=== PATIENT | female | born 1995 | race Caucasian/White ===

== ENCOUNTER 2021-08-13 17:07 | Emergency (ER) | payer OTHER, SELFPAY ==
--- NOTE | ~2021-08-13 | CT_ITS ---
EXAMINATION: CT brain wo con INDICATION: Head injury COMPARISON: None TECHNIQUE: Standard unenhanced head CT. The dose-length product (DLP) was 605.33 mGy-cm. The mA was a djusted according to patient size. Iterative reconstruction technique was employed. FINDINGS: There is no intracranial hemorrhage, acute infarction, or abnormal mass lesion. The ventric les are normal. There is no abnormal mass effect or midline shift. The barber-white matter differentiat ion is normal. The basal cisterns are patent. The orbits are normal. The paranasal sinuses, mastoids and calvarium are normal. IMPRESSION: 1. No acute intracranial abnormality. Reviewed, dictated and finalized at location F. DYNAMICS ENGINEER
--- NOTE | ~2021-08-13 | XR_ITS ---
EXAMINATION: XR chest 1V portable INDICATION: Transient alteration of awareness TECHNIQUE: Portable AP chest at 1840 hours COMPARISON: None available FINDINGS: The lungs are free of acute opacities. There is no pleural effusion or pneumothorax. The ca rdiomediastinal silhouette is normal. IMPRESSION: 1. No acute cardiopulmonary abnormality. Reviewed, dictated and finalized at location F. PER AND RECEIVING
--- NOTE | ~2021-08-13 | CT_ITS ---
EXAMINATION: CT cervical spine wo con DATE: 08/13/2021 18:52 INDICATION: Transient alteration of awareness, neck pain TECHNIQUE: Computed tomography (CT) of the cervical spine was performed without intravenous contrast. The dose-length product (DLP) was 475.83 mGy-cm. Automated exposure control and iterative reconstruc tion technique were employed. COMPARISON: None FINDINGS: There is no fracture, dislocation, or subluxation. The vertebral body heights, alignment, a nd intervertebral disc spaces are normal. The paravertebral soft tissues are unremarkable. The odonto id is intact. IMPRESSION: 1. No acute osseous abnormality. Reviewed, dictated and finalized at location F. ORICAL SITE GUIDE
[2021-08-13 17:15] VITALS: BP 127/79; PULSE 63; RESP 20; TEMP 36.4; O2SAT 98
--- NOTE | 2021-08-13 17:33 | ECG_ITS ---
Measurements Intervals [place] Rate: 79 P: 64 WA: 188 QRS: 83 QRSD: 84 T: 72 QT: 375 QTc: 431 Interpretive Statements SINUS RHYTHM BASELINE WANDER- I, III, AVL NORMAL ECG Electronically Signed On 08-13-2021 19:08:16 HEARING AID REPAIR TECHNICIAN by Sanjeev Harris D.O.
[2021-08-13 17:59] LABS: Basophils Absolute Auto 0.07 K/mm3 (0.00-0.10); Basophils Percent Auto 0.9 % (0.0-1.0); Eosinophils Absolute Auto 0.22 K/mm3 (0.02-0.50); Eosinophils Percent Auto 2.8 % (1.0-6.0); Hematocrit 42.5 % (35.0-49.0); Immature Granulocyte Absolute 0.03 K/mm3 (0.00-0.00); Immature Granulocyte Percent A 0.4 % (0.0-0.0); Lymphocytes Absolute Auto 3.18 K/mm3 (1.10-4.50); Lymphocytes Percent Auto 40.1 % (18.0-42.0); Mean Corpuscular HGB Conc 32.9 g/dL (32.0-36.0); Mean Corpuscular Hemoglobin 31.3 pg (27.0-31.0); Mean Corpuscular Volume 95.1 fL (78.0-102.0); Mean Platelet Volume 10.8 fl (9.2-11.8); Monocytes Absolute Auto 0.53 K/mm3 (0.10-0.90); Monocytes Percent Auto 6.7 % (2.0-11.0); Neutrophils Absolute Auto 3.9 K/mm3 (1.7-7.2); Neutrophils Percent Auto 49.1 % (50.0-70.0); Platelet Count Result 298 K/mm3 (150-420); Red Blood Count 4.47 M/mm3 (4.20-5.40); White Blood Count 7.9 K/mm3 (4.8-10.8)
[2021-08-13] MEDS: SODIUM CHLORIDE 0.9% IV 500 ML 999 ML IV CONT (18:02)
[2021-08-13] MEDS: KETOROLAC (*BKC) 60 MG/2 ML VIAL IM (18:02)
[2021-08-13 18:13] LABS: Amphetamine Screen Urine Negative (Negative); Barbiturate Screen Urine Negative (Negative); Benzodiazepines Screen Urine Negative (Negative); Cannabinoid Screen Urine Negative (Negative); Cocaine Screen Urine Negative (Negative); Methadone Screen Urine Negative (Negative); Opiate Screen Urine Negative (Negative); Phencyclidine Screen Urine Negative (Negative)
[2021-08-13 18:15] LABS: Alanine Aminotransferase 25 U/L (14-59); Albumin Level 3.9 g/dL (3.4-5.0); Alkaline Phosphatase 90 U/L (46-116); Anion Gap 7 mmol/L (8-16); Aspartate Amino Transferase 11 U/L (15-37); Bilirubin,Total 0.2 mg/dL (0.00-1.00); Blood Urea Nitrogen 16 mg/dL (7-18); Calcium 8.8 mg/dL (8.5-10.1); Carbon Dioxide 27 mmol/L (21-32); Chloride 106 mmol/L (98-108); Estimated Glomerular Filt Rate > 60; Glucose 83 mg/dL (70-99); Osmolality Calculated 290 mOsm/kg (285-295); Potassium 4.2 mmol/L (3.5-5.1); Sodium 140 mmol/L (136-145); Total Protein 7.4 g/dL (6.4-8.2); Troponin I 5.7 ng/L (0.00-60.4)
[2021-08-13 18:16] LABS: Ethanol < 3 mg/dL (0-6)
[2021-08-13 18:18] LABS: Lactic Acid Reflex 0.5 mmol/L (0.4-2.0); SPREG INTERNAL CONTROL Positive; Serum Qual hCG Negative
--- NOTE | 2021-08-13 18:59 | PC.NURSE ---
report to LALITA Love. no questions or concerns at this time.
--- NOTE | 2021-08-13 19:25 | ED.HEATRA ---
HPI - Head Injury General Chief complaint: Head Injury Stated complaint: laceration forehead Time Seen by Provider: 08/13/21 17:10 Source: patient, family and RN notes reviewed Mode of arrival: ambulatory Limitations: no limitations History of Present Illness Complaint: fall (Pt stumbled and fell hitting her forehead and lost conciousness x 20 sec. now with blurred vision and mild light-headedness.) Onset (ago): hour(s) (2) Mechanism of Injury: fall Place: home Loss of Consciousness: yes Location of injury: frontal Severity: mild Severity scale (1-10): 2 Other Injuries: none Associated symptoms: denies other symptoms Related Data Allergies Allergy/AdvReac Type Severity Reaction Status Date / Time Penicillins Allergy Intermediate Verified 09/10/17 09:05 Review of Systems Review of Systems: All systems reviewed & are unremarkable except as noted in HPI and below PMFSH Past Medical History Medical History Closed head injury Social History Social History Smoking status: Current every day smoker Exam Const: General: no acute distress and alert Orientation/consciousness: patient oriented x3 Limitations: no limitations HENMT: Head: normal to inspection Ears: external ears normal and EAC's normal General nose exam: Normal external nose present and Normal nares present Mouth: Yes lip normal and Yes moist mucous membranes Teeth and gingiva: dentition normal Throat: posterior oropharynx normal Eyes: Conjunctivae: conjunctivae normal Pupils: Equal, round and reactive pupils present EOM: EOMs intact bilaterally Neck: Neck: normal visual inspection and no lymphadenopathy Chest: Chest palpation & inspection: normal inspection of the chest Resp: Effort & Inspection: normal respiratory effort Auscultation: clear to auscultation bilaterally Cardio: Rate: regular rate Rhythm: regular rhythm GI: GI Palp: Yes Soft to palpation and No Tenderness to palpation present (GI) Auscultation: normal bowel sounds : General: Yes bladder normal to palpation and Yes no CVA tenderness Back/Spine/Pelvis: Back: no CVA tenderness Skin: General skin exam: normal color Neuro: General: patient oriented x3, moves all extremities, no meningeal signs and no focal motor deficits Cranial nerves: Yes CN's II-XII intact bilaterally Extrem: General: normal to inspection and no pedal edema Psych: Appearance: grossly normal and well kempt Mental Status: mental status grossly normal Affect: normal affect Attitude: cooperative Thought content: Yes Normal thought content present Course Course Emergency Course: Pt was stable in the ED, with less MORSE. Reevaluation(s) Reevaluation #1: ROGER. Date: 08/13/21 Time: 18:05 Vital Signs Vital signs: Vital Signs Temperature 36.4 C 08/13/21 17:15 Pulse Rate 63 08/13/21 17:15 Respiratory Rate 20 08/13/21 17:15 Blood Pressure 127/79 08/13/21 17:15 Pulse Oximetry 98 08/13/21 17:15 Temperature 36.4 C 08/13/21 17:15 Pulse Rate 79 08/13/21 19:37 Respiratory Rate 16 08/13/21 19:37 Blood Pressure 131/82 08/13/21 19:37 Pulse Oximetry 99 08/13/21 19:37 MDM - Head Injury Differential Diagnosis Differential diagnosis: Likely closed head injury and concussion with loss of consciousness Medical Records Attestation: I reviewed the patient's medical records. Lab Data Attestation: I reviewed the patient's lab results. Result diagrams: 08/13/21 17:55 08/13/21 17:55 Labs: Lab Results 08/13/21 08/13/21 08/13/21 Range/Units 17:55 17:55 17:55 WBC 7.9 (4.8-10.8) K/mm3 RBC 4.47 (4.20-5.40) M/mm3 Hgb 14.0 (12.0-15.0) g/dL Hct 42.5 (35.0-49.0) % MCV 95.1 (78.0-102.0) fL MCH 31.3 H (27.0-31.0) pg MCHC 32.9 (32.0-36.0) g/dL RDW 12.0 (11.6-14.4) % Plt Count 298 (150-420) K/mm3 M
[2021-08-13 19:37] VITALS: BP 131/82; PULSE 79; RESP 16; O2SAT 99
== END 2021-08-13 19:50 | disposition home or self-care (01) ==
PROVIDERS: Emergency Provider Emergency Medicine; PCP Physician Assistant
DX: S09.90XA Unspecified injury of head, initial encounter (principal); W19.XXXA Unspecified fall, initial encounter
CPT/HCPCS: 36415; 70450; 71045; 72125; 80053; 80307; 83605; 84484; 84703; 85025; 93005; 96360; 96372; 99284; J1885; J7040

== ENCOUNTER 2022-01-14 18:03 | Emergency (ER) | payer OTHER, SELFPAY ==
--- NOTE | ~2022-01-14 | XR_ITS ---
EXAM: XR abdomen/kub 1V DATE: 01/14/2022 19:35 HISTORY: Abd Pain AT AREA OF UMBILICAS . COMPARISON: None available. FINDINGS: Clear lung bases. Normal bowel gas pattern. No organomegaly. No abnormal abdominal calcifi cation. Regional bones and soft tissues normal for age. IMPRESSION: No radiographic evidence of obstruction or ileus. Reviewed, dictated and finalized at location K.
--- NOTE | 2022-01-14 18:12 | ED.ABDPAIN ---
HPI - Abdominal Pain General Chief Complaint: Urogenital-Female Stated Complaint: abd pain Time Seen by Provider: 01/14/22 18:33 Source: patient and RN notes reviewed Mode of arrival: ambulatory Limitations: no limitations History of Present Illness HPI narrative: Patient states that she urinated at 5:00 p.m. but then has not been able to poop or P since 5:00 p.m.. She says she has cramping fullness in her epigastric area. She had a bowel movement yesterday but did have difficulty with the bowel movement yesterday. She has a history of polycystic ovaries. MD elicited complaint: abdominal pain Pertinent past history: none Onset (ago): hour(s) (1.5) Pain Consistency: constant Location: pelvis Severity: mild Quality: cramping Radiation: none Migration to: no migration Related Data Allergies Allergy/AdvReac Type Severity Reaction Status Date / Time Penicillins Allergy Intermediate Verified 09/10/17 09:05 PMFSH Past Medical History Medical History (Updated 01/14/22 @ 19:30 by Jacques Billings MD) Closed head injury Polycystic ovary Surgical History Surgical History (Updated 01/14/22 @ 18:50 by Jacques Billings MD) No pertinent past surgical history Social History Social History Smoking status: Current every day smoker Exam Const: General: healthy appearing, no acute distress and alert Nutritional Appearance: well nourished Orientation/consciousness: patient oriented x3 Limitations: no limitations Other: female nurse in room during examination. HENMT: Head: normal to inspection Ears: external ears normal Eyes: Conjunctivae: conjunctivae normal Pupils: Equal, round and reactive pupils present EOM: EOMs intact bilaterally Neck: Neck: normal visual inspection Resp: Effort & Inspection: normal respiratory effort Auscultation: clear to auscultation bilaterally Cardio: Rate: regular rate Rhythm: regular rhythm GI: GI Palp: Yes Soft to palpation, Yes Tenderness to palpation present (GI) ( Moderate in the pelvic region over bilateral ovaries) and Yes Guarding due to palpation present (GI) (Mild) Auscultation: normal bowel sounds Back/Spine/Pelvis: Cervical Spine: cervical ROM normal Thoracic/Lumbar Spine: thoraco-lumbar ROM normal Skin: General skin exam: normal color Rashes: no rashes Neuro: General: patient oriented x3, moves all extremities, no focal motor deficits and CN's II-XI intact bilaterally Speech: normal speech Gait exam (Neuro): Normal gait present Extrem: General: normal to inspection and no clubbing, cyanosis or edema Psych: Mental Status: mental status grossly normal Affect: normal affect Attitude: cooperative MDM - Abdominal Pain Differential Diagnosis Differential diagnosis: Likely abdominal pain, acute appendicitis, calculus of kidney, diverticulitis, endometriosis and other ( Constipation, ovarian cyst, UTI.) Lab Data Attestation: I reviewed the patient's lab results. Discharge Plan Discharge Clinical Impression: UTI (urinary tract infection) Qualifiers: Urinary tract infection type: acute cystitis Hematuria presence: with hematuria Qualified Code(s): N30.01 - Acute cystitis with hematuria Patient Disposition: Home, Self-Care Condition: Stable Instructions: Urinary Tract Infection in Women (ED) Additional Instructions: Drink plenty of fluids, Tylenol and or Motrin as needed for pain. Prescriptions: New sulfamethoxazole-trimethoprim [Bactrim DS] 800-160 mg tablet 1 tablet PO Q12H 5 Days Qty: 10 0RF Follow-up/Referrals: Megan,IBAN Harkins [Primary Care Provider] - Time of Disposition: 19:38
[2022-01-14 18:15] VITALS: BP 129/91; PULSE 93; RESP 20; TEMP 36.7; O2SAT 100
--- NOTE | 2022-01-14 18:48 | PC.NURSE ---
[address] rn in room with dr house for exam, pt able to urinate, states i really had to push it out . denies burning upon urination
[2022-01-14 18:57] LABS: Basophils Absolute Auto 0.06 K/mm3 (0.00-0.10); Basophils Percent Auto 0.7 % (0.0-1.0); Eosinophils Absolute Auto 0.22 K/mm3 (0.02-0.50); Eosinophils Percent Auto 2.4 % (1.0-6.0); Hematocrit 40.6 % (35.0-49.0); Hemoglobin 13.6 g/dL (12.0-15.0); Immature Granulocyte Absolute 0.03 K/mm3 (0.00-0.00); Immature Granulocyte Percent A 0.3 % (0.0-0.0); Lymphocytes Absolute Auto 2.49 K/mm3 (1.10-4.50); Mean Corpuscular HGB Conc 33.5 g/dL (32.0-36.0); Mean Corpuscular Hemoglobin 31.5 pg (27.0-31.0); Mean Platelet Volume 10.5 fl (9.2-11.8); Monocytes Absolute Auto 0.65 K/mm3 (0.10-0.90); Neutrophils Absolute Auto 5.8 K/mm3 (1.7-7.2); Neutrophils Percent Auto 62.6 % (50.0-70.0); Platelet Count Result 276 K/mm3 (150-420); Red Blood Count 4.32 M/mm3 (4.20-5.40); Red Cell Distribution Width 12.2 % (11.6-14.4); White Blood Count 9.2 K/mm3 (4.8-10.8)
[2022-01-14 18:59] LABS: Add Urine Microscopic? YES; Appearance Urine Clear (Clear); Bilirubin Urine Negative (Negative); Blood Urine Negative (Negative); Color Urine Yellow (Yellow); Glucose Urine UA Negative (Negative); Ketones Urine Negative (Negative); Leukocyte Esterase Ur Trace LEU/UL (Negative); Nitrate Urine Negative (Negative); Protein Urine Negative (Negative); Specific Grav Ur >= 1.030 (1.010-1.020); Urobilinogen Urine 0.2 mg/dL (0.2-1.0)
--- NOTE | 2022-01-14 19:01 | PC.NURSE ---
report to je Love , no questions at this time
[2022-01-14] MEDS: KETOROLAC 30 MG/ML VIAL (*BKC) IM (19:05)
[2022-01-14 19:06] LABS: Amorphous Sediment Urine Heavy; Bacteria Urine 1+ /hpf; Mucus Urine Heavy /lpf; Squamous Epithelial Cell Urine Many /hpf (Few)
[2022-01-14 19:08] LABS: Pregnancy On Board Control Positive; Urine Pregnancy Test Negative
[2022-01-14 19:11] LABS: Alanine Aminotransferase 31 U/L (14-59); Albumin Level 3.7 g/dL (3.4-5.0); Alkaline Phosphatase 63 U/L (46-116); Anion Gap 9 mmol/L (8-16); Aspartate Amino Transferase 15 U/L (15-37); Bilirubin,Total 0.5 mg/dL (0.00-1.00); Blood Urea Nitrogen 11 mg/dL (7-18); Calcium 8.6 mg/dL (8.5-10.1); Carbon Dioxide 26 mmol/L (21-32); Chloride 105 mmol/L (98-108); Estimated CRCL calculation 84 ml/min; Estimated Glomerular Filt Rate > 60; Glucose 90 mg/dL (70-99); Lipase 45 U/L (73-393); Osmolality Calculated 289 mOsm/kg (285-295); Potassium 3.9 mmol/L (3.5-5.1); Sodium 140 mmol/L (136-145); Total Protein 6.9 g/dL (6.4-8.2)
[2022-01-14 19:20] LABS: Lactic Acid Reflex 0.6 mmol/L (0.4-2.0)
[2022-01-14 19:47] VITALS: BP 124/64; PULSE 78; RESP 16; O2SAT 99
== END 2022-01-14 19:49 | disposition home or self-care (01) ==
PROVIDERS: Emergency Provider Emergency Medicine; PCP Physician Assistant
DX: N30.01 Acute cystitis with hematuria (principal)
CPT/HCPCS: 36415; 74018; 80053; 81001; 81025; 83605; 83690; 85025; 87086; 87088; 96372; 99283; A9270; J1885

== ENCOUNTER 2022-09-11 17:45 | Emergency (ER) | payer OTHER, SELFPAY ==
--- NOTE | ~2022-09-11 | XR_ITS ---
EXAMINATION: XR knee RT min 4V DATE: 09/11/2022 18:24 INDICATION: Right knee pain TECHNIQUE: Five views of the right knee were obtained. COMPARISON: None. FINDINGS: Alignment is normal. No fracture or osteochondral lesion. Joint spaces are normal with no e rosions. No joint effusion/synovitis. Soft tissues are unremarkable. IMPRESSION: 1. No acute osseous abnormality. Reviewed, dictated and finalized at location F.
[2022-09-11 17:49] VITALS: BP 130/76; PULSE 88; RESP 18; TEMP 36.7; O2SAT 98
[2022-09-11 18:03] VITALS: BP 130/76; PULSE 88; RESP 18; TEMP 36.7; O2SAT 98
--- NOTE | 2022-09-11 19:41 | ED.LOWEXIN ---
HPI - Extremity Injury (Lower) General Chief Complaint: Extremity Injury, Lower Stated Complaint: right knee injury Time Seen by Provider: 09/11/22 18:05 History of Present Illness HPI Narrative: 27-year-old female was going up some steps, tripped and landed hard on her right knee on the concrete step. Did not hit her head, did not lose consciousness, did not injure her neck or back, reports the knee is painful, hurts to bend, hurts to bear weight. no other injury Related Data Allergies Allergy/AdvReac Type Severity Reaction Status Date / Time Penicillins Allergy Intermediate Anaphylaxis Verified 09/11/22 17:50 Review of Systems Review of Systems: All systems reviewed & are unremarkable except as noted in HPI and below ( HPI) [facility] Past Medical History Medical History Closed head injury Polycystic ovary Surgical History Surgical History (Updated 01/14/22 @ 18:50 by Jacques Billings MD) No pertinent past surgical history Social History Social History Smoking status: Current every day smoker Exam Narrative: pleasant looks uncomfortable but not in distress, well oriented Const: General: healthy appearing and no acute distress Nutritional Appearance: well nourished Orientation/consciousness: patient oriented x3 Limitations: no limitations HENMT: Head: normal to inspection Face and sinus: normal facial exam Eyes: Conjunctivae: conjunctivae normal Pupils: Equal, round and reactive pupils present EOM: EOMs intact bilaterally Neck: Neck: normal visual inspection Other: nontender Chest: Chest palpation & inspection: no tenderness Resp: Effort & Inspection: normal respiratory effort Auscultation: clear to auscultation bilaterally Cardio: Rate: regular rate Rhythm: regular rhythm Heart sounds: Murmur heart sound present GI: GI Palp: Yes Soft to palpation, No Tenderness to palpation present (GI) and No Guarding due to palpation present (GI) Skin: General skin exam: normal color Rashes: no rashes Other: minor abrasions present Neuro: General: patient oriented x3 Cranial nerves: Yes Nystagmus not present Speech: normal speech Gait exam (Neuro): Normal gait present Extrem: General: normal to inspection and no pedal edema Other: except there is tenderness on palpation of the anterior surface of the right knee, proximal tibial anterior surface, but there is no apprehension sign. Pain increases on flexing and extending, range of motion is decreased about 30?, collateral ligaments appear intact, unable to fully test cruciate ligaments Psych: Mental Status: mental status grossly normal Affect: normal affect Attitude: cooperative Course CUSTOMS ENTRY CLERK/PA Physician Supervision x-rays were negative for fracture, will treat for knee contusion, Omero wrap, ice, elevate, Tylenol, ibuprofen as needed for pain follow-up with her primary care physician Vital Signs Vital signs: Vital Signs Temperature 36.7 C 09/11/22 17:49 Pulse Rate 88 09/11/22 17:49 Respiratory Rate 18 09/11/22 17:49 Blood Pressure 130/76 09/11/22 17:49 Pulse Oximetry 98 09/11/22 17:49 Oxygen Delivery Room Air 09/11/22 17:49 Temperature 36.7 C 09/11/22 18:03 Pulse Rate 77 09/11/22 20:11 Respiratory Rate 16 09/11/22 20:11 Blood Pressure 118/82 09/11/22 20:11 Pulse Oximetry 99 09/11/22 20:11 Oxygen Delivery Room Air 09/11/22 20:11 Discharge Plan Discharge Clinical Impression: Contusion of knee, right Patient Disposition: Home, Self-Care Condition: Stable Instructions: Knee Sprain (ED), Knee Pain (ED) Additional Instructions: use the knee immobilizer. Tonight and tomorrow elevate, ice intermittently. Prescriptions: New naproxen [Naprosyn] 500 mg tablet 500 mg PO BID PRN (Reason: pain) Qty: 60 0RF Follow-up/Referrals: Megan,IBAN Harkins
[2022-09-11] MEDS: KETOROLAC (*BKC) 60 MG/2 ML VIAL IM (20:03)
[2022-09-11 20:11] VITALS: BP 118/82; PULSE 77; RESP 16; O2SAT 99
== END 2022-09-11 20:15 | disposition home or self-care (01) ==
PROVIDERS: Emergency Provider Emergency Medicine; PCP Physician Assistant
DX: S80.01XA Contusion of right knee, initial encounter (principal); F17.200 Nicotine dependence, unspecified, uncomplicated; W10.8XXA Fall (on) (from) other stairs and steps, initial encounter
CPT/HCPCS: 73564; 96372; 99283; J1885; L1830

== ENCOUNTER 2025-04-12 21:04 | Emergency (ER) | payer OTHER, SELFPAY ==
--- NOTE | ~2025-04-12 | XR_ITS ---
XR ankle LT min 3V 04/12/2025 21:21 INDICATION: Left ankle pain after twisting injury PROCEDURE: 4 views left ankle COMPARISON: No prior studies for comparison. FINDINGS: Fracture, dislocation or subluxation is not identified. Ankle mortise intact. The soft tissues appear within normal limits. No foreign bodies are identified. IMPRESSION: 1: NO ACUTE BONE OR JOINT ABNORMALITY IDENTIFIED. Reviewed, dictated and finalized at location B.
[2025-04-12 21:04] VITALS: BP 145/104; PULSE 94; RESP 17; TEMP 36.9; O2SAT 97
--- OUTSIDE RECORDS SUMMARY | 2025-04-12 21:08 | XMS_ITS | Encounter Summary ---
Author Organization [facility] Address [facility] [place] [address] Care Team Providers Care Hair And Makeup Designer Name Role Phone Torin Guzman Primary Care Provider [phone] Encounter Details Date Type Department Care Team (Late st Contact Info) Description 11/23/2018 Abstract [facility] CONVERSION [address] [place] [address] , Generic Conversion, Social History Tobacco Use Types Packs/Day Years Used Date Smoking Tobacco: Never Assessed Comments Unknown Sex and Gender Information Value Date Recorded Sex Assigned at Female 04/06/2020 11:25 PM CDT Legal Sex Female 5:54 PM LAWYER Gender Identity Female 04/06/2020 11:25 PM CDT Sexual Orientation Straight 04/06/2020 11 :25 PM CDT documented as of this encounter Plan of Treatment Not on file documented as of this encounter Visit Diagnoses Not on filedocumented in this encounter Care Teams Hair And Makeup Designer Relationship Specialty Start Date End Date Torin Guzman PA [address] [place] [phone] PCP - General PHYSICIAN CASTINGS DRAFTER 08/13/19 documented as of this encounter
--- OUTSIDE RECORDS SUMMARY | 2025-04-12 21:08 | XMS_ITS | Encounter Summary ---
Author Organization [facility] Address [facility] [place] [address] Care Team Providers Care Printing Mechanist Name Role Phone Torin Guzman Primary Care Provider [phone] Encounter Details Date Type Department Care Team (Late st Contact Info) Description 04/05/[address] [facility] [address] [place] [address] Marcella Amos MD [address] [place] [phone] Social History Tobacco Use Types Packs/Day Years Used Date Smoking Tobacco: Every Day Cigarettes Smokeless Tobacco: Never Alcohol Use Standard Drinks/Week Comments Not Currently 0 (1 standard drink = 0.6 oz pur e alcohol) Humiliation, Afraid, Rape, and Kick questionnair e Answer Date Recorded Within the last year, have y ou been afraid of your partner or ex-partner? No 02/24/2020 Within the last year, have y ou been humiliated or emotionally abused in other ways by your partner or ex-partner? No Within the last year, have y ou been kicked, hit, slapped, or otherwise physically hurt by your partner or ex-partner? No 02/24/2020 Within the last year, have y ou been raped or forced to have any kind of sexual activity by your partner or ex-partner? No 02/24/2020 Social Connection and Isolation Panel Answer Date Recorded In a typical week, how many times do you talk on the phone with family, friends, or neighbors? More than three times a week 04/06/2020 How often do you get togethe r with friends or relatives? Never 04/06/2020 How often do you attend chur ch or buddhism services? Never 04/06/2020 Do you belong to any clubs o r organizations such as tenriism groups, unions, fraternal or athletic groups, or school groups? Yes 04/06/2020 Attends Club or Organization Meetings Not on neel e 04/06/2020 Are you , , di vorced, , never , or living with a partner? 04/06/2020 Overall Financial Resource Strain (CARDIA) Answe r Date Recorded How hard is it for you to pa y for the very basics like food, housing, medical care, and heating? Not hard at all 02/24/2020 [facility] Occup[facility] ional [facility] - Occupational Stress Questionnaire Answer Date Recorded Do you feel stress - tense, restless, nervous, or anxious, or unable to sleep at night because your mind is troubled all the time - these days? Not at all 04/06/2020 Exercise Vital Sign Answer Date Recorde d On average, how many days pe r week do you engage in moderate to strenuous exercise (like a brisk walk)? 0 days 04/06/2020 On average, how many minutes do you engage in exercise at this level? 0 min 04/06/2020 Hunger Vital Sign Answer Date Recorded Within the past 12 months, y ou worried that your food would run out before you got the money to buy more. Never true 02/24/20 20 Within the past 12 months, t he food you bought just didn't last and you didn't have money to get more. Never true 02/24/2020 PRAPARE - Transportation Answer Date Re corded In the past 12 months, has l ack of transportation kept you from medical appointments or from getting medications? No 01/2020 In the past 12 months, has l ack of transportation kept you from meetings, work, or from getting things needed for daily living? No 02/24/2020 Comments Yes Sex and Gender Information Value Date Recorded Sex Assigned at Female 04/06/2020 11:25 PM CDT Legal Sex Female 5:54 PM PROJ MGR Gender Identity Female 04/06/2020 11:25 PM CDT Sexual Orientation Straight 04/06/2020 11 :25 PM CDT COVID-19 Exposure Response Date Recorded In the last month, have you been in contact with someone who was confirmed or suspected to have Coronavirus / COVID-19? No / Unsure 04/06/2020 11:42 PM CDT documented as of this encounter Functional Status documented as of this encounter Mental Status * Question Answer Entry Date Author Status Because of a physical, mental, or emotional condition, do you have serious difficulty concentrating, remembering, or making decisions? No 04/06/2020 11:43 PM CDT Kiki Fischer RN Active documented in this encounter Plan of Treatment Not on file documented as of this encounter Visit Diagnoses Not on filedocumented in this encounter Care Teams Printing Mechanist Relationship Specialty Start Date End Date Torin Guzman PA [address] [place] [phone] PCP - General PHYSICIAN PRESS OPERATOR [employer]ON [employer] 08/13/19 documented as of this encounter
--- OUTSIDE RECORDS SUMMARY | 2025-04-12 21:08 | XMS_ITS | Clinical Summary ---
Author Organization [facility] Address [facility] [place] [address] Care Team Providers Care Nurse Unit Manager Name Role Phone Torin Guzman Primary Care Provider [phone] Allergies Active Allergy Reactions Criticality Noted Date Comments Penicillins Hives 08/13/2019 Medications famotidine 20 MG tablet 12/02/2019 Active VITAMINS 28-0.8 MG tablet 11/11/2019 Ac tive Active Problems Problem Noted Date Diagnosed Date Encounter for planned induction of labor 020 Family History Medical History Relation Comments Aneurysm Maternal Grandmother Cancer Mother Relation Status Comments Maternal Grandmother Mother Alive Social History Tobacco Use Types Packs/Day Years Used Date Smoking Tobacco: Every Day Cigarettes Smokeless Tobacco: Never Tobacco Cessation:Ready to Q uit: No Alcohol Use Standard Drinks/Week Comments Not Currently [...] often do you attend chur ch or synagogue services? Never 04/06/2020 Do you belong to any clubs o r organizations such as rastafari groups, unions, fraternal or athletic groups, or [...] and heating? Not hard at all 02/24/2020 [facility] [place] of Occupat ional Health - Occupational Stress [...] needed for daily living? No 02/24/2020 Comments No Sex and Gender Information Value Date Recorded Sex Assigned at Female 04/06/2020 11:25 PM CDT Legal Sex Female 5:54 PM EXHIBIT SPECIALIST Gender Identity Female 04/06/2020 11:25 PM CDT Sexual Orientation Straight 04/06/2020 11 :25 PM CDT Last Filed Vital Signs Vital Sign Reading Time Taken Comments Blood Pressure 139/83 05/25/2020 9:22 PM EXHIBIT SPECIALIST Pulse 83 05/25/2020 9:22 PM EXHIBIT SPECIALIST Temperature 35.9 C (96.7 F) 05/26/2020 12:34 AM EXHIBIT SPECIALIST Respiratory Rate 16 05/25/2020 9:22 PM EXHIBIT SPECIALIST Oxygen Saturation 99% 05/25/2020 9:22 PM EXHIBIT SPECIALIST Inhaled Oxygen Concentration - - Weight 83.6 kg (184 lb 6.4 oz) 05/25/2020 9:22 P M EXHIBIT SPECIALIST Height 160 cm (5' 3) 05/25/2020 9:22 PM EXHIBIT SPECIALIST Body Mass Index 32.66 05/25/2020 9:22 PM EXHIBIT SPECIALIST Plan of Treatment Health Maintenance Due Date Last Done Comments Cervical Cancer Screening Pa p Smear (Age 21 to 29) Every 3 Years 1996 Cervical Cancer Screening 1996 Annual Physical 09/05/1999 Hepatitis C 2014 DTaP, Tdap and Td Vaccines ( 2 - Tdap) 09/05/2015 09/11/2000 Hepatitis B Vaccines (1 of 3 - 19+ 3-dose series) 09/05/2015 Pneumococcal Vaccine: Pediatrics (0 to 5 Years) and At-Risk Patients (6 to 49 Years) (1 of 2 - PCV) 09/05/2015 COVID-19 Vaccine (2024-2 6 season) 2025 Influenza Adult (#1) 2025 HPV Vaccines Completed 07/11/2011, 03/14/2011, 01/10/2011 Meningococcal Vaccine Completed 10/01/2014 Hepatitis A Vaccines Aged Out No long er eligible based on patient's age to complete this topic Meningococcal B Vaccine Aged Out No l onger eligible based on patient's age to complete this topic RSV Immunizations Under 20 Months Aged Out No longer eligible b ased on patient's age to complete this topic Insurance [place] [employer] Advance Directives * Full Code (Latest Code Status on File) Date Activated Date Inactivated Comments 04/16/2020 3:32 PM 04/18/2020 11:59 AM * Full Code Date Activated Date Inactivated Comments 02/07/2020 4:35 PM 02/07/2020 8:16 PM Care Teams Nurse Unit Manager Relationship Specialty Start Date End Date Torin Guzman PA [address] [place] [phone] PCP - General PHYSICIAN CONSTRUCTION PLANT OPERATOR 08/13/19
--- NOTE | 2025-04-12 21:13 | ED.LOWEXIN ---
HPI - Extremity Injury (Lower) General Chief Complaint: Extremity Injury, Lower Stated Complaint: ankle injury Time Seen by Provider: 04/12/25 21:11 Source: patient Mode of arrival: ambulatory Limitations: no limitations History of Present Illness HPI Narrative: Twist his left ankle, stepped into a hole prior to arrival. No other injuries Related Data Allergies Allergy/AdvReac Type Severity Reaction Status Date / Time Penicillins Allergy Intermediate Anaphylaxis Verified 04/12/25 21:15 Review of Systems Review of Systems: All systems reviewed & are unremarkable except as noted in HPI and below PMFSH Past Medical History Medical History Polycystic ovary Closed head injury Surgical History Surgical History No pertinent past surgical history Social History Social History Smoking status: Current every day smoker Exam Narrative: General appearance: Well-developed, well-nourished Skin: Normal color Head: Normocephalic, nontraumatic Eyes: Clear conjunctiva ENT: Oropharynx normal, ears normal, nose normal Neck: Supple, nontender Vascular: Normal peripheral pulses, normal capillary refill. Musculoskeletal: Diffuse tenderness left ankle, mainly lateral malleolus, no bruises, no swelling, no deformity, slight limited range of motion because of pain Neurologic: Alert and oriented ?3, [employer] is normal as tested, no gross motor deficit MDM - Extremity Injury (Lower) Differential Diagnosis Differential diagnosis: Likely ankle sprain and strain and ankle fracture Imaging Data My impression: X-ray of left ankle showed no acute osseous abnormality Critical Care Time Critical Care Time Critical Care Time: No Discharge Plan Discharge Clinical Impression: Left ankle sprain Patient Disposition: Home Condition: Stable Instructions: Ankle Sprain (DC), Splint Care (ED) Additional Instructions: Return if symptoms are worsening , call your family physician for appointment, take Tylenol, ibuprofen as as needed for aches and pain, continue home medications., keep left foot elevated, crutches as needed, Patient Language: Kiswahili Prescriptions: No Action naproxen [Naprosyn] 500 mg tablet 500 mg PO BID PRN (Reason: pain) Qty: 60 0RF Follow-up/Referrals: Megan,IBAN Harkins [Primary Care Provider]
--- NOTE | 2025-04-12 21:30 | PC.NURSE ---
ERP aware of pt's vital signs. No new orders at this time.
== END 2025-04-12 21:39 | disposition home or self-care (01) ==
PROVIDERS: Emergency Provider Emergency Medicine; PCP Physician Assistant
DX: S93.402A Sprain of unspecified ligament of left ankle, initial encounter (principal); F17.200 Nicotine dependence, unspecified, uncomplicated; X50.0XXA Overexertion from strenuous movement or load, initial encounter
CPT/HCPCS: 29515; 73610; 99283; L4350